=== PATIENT | male | born 1990 | race Caucasian/White ===

== ENCOUNTER 2022-04-05 13:41 | Inpatient (IN) | payer MEDICAID ==
[~2022-04-05] VITALS: Ht 167.6 cm; Wt 71.0 kg
[~2022-04-05 13:41] MED LIST: NOCURR
[2022-04-05 15:36] LABS: BASOPHILS % (AUTO) 0.5 % (0.0-2.0); EOSINOPHILS % (AUTO) 2.3 % (1.0-6.0); HEMATOCRIT 34.3 % (41-53); HEMOGLOBIN 11.4 g/dL (13.5-17.5); LYMPHOCYTES # (AUTO) 3.7 K/uL (1.0-4.8); LYMPHOCYTES % (AUTO) 30.3 % (22.0-44.0); MEAN CORPUSCULAR HEMOGLOBIN 30.4 pg (26.0-34.0); MEAN CORPUSCULAR HGB CONC 33.2 G/dL (31.0-37.0); MEAN CORPUSCULAR VOLUME 92 fL (80-100); MONOCYTES # (AUTO) 1.1 K/uL (0.1-1.0); MONOCYTES % (AUTO) 9.5 % (2.0-9.0); NEUTROPHILS % (AUTO) 57.4 % (40.0-70.0); PLATELET COUNT (AUTO) 592 K/uL (150-450); RED BLOOD CELL COUNT(AUTO) 3.74 MIL/uL (4.50-5.90); RED CELL DISTRIBUTION WIDTH 14.7 % (11.5-14.5)
[2022-04-05 15:40] LABS: ANION GAP 8 mmol/L (8-16); CARBON DIOXIDE 27 mmol/L (22-29); CHLORIDE 100 mmol/L (98-107); GLUCOSE,RANDOM 94 mg/dL (70-110); POTASSIUM 4.8 mmol/L (3.5-5.1); SODIUM SERUM 135 mmol/L (136-145); UREA NITROGEN, BLOOD 14 mg/dL (7-18)
[2022-04-05 15:41] LABS: CALCIUM, TOTAL 9.4 mg/dL (8.8-10.5)
[2022-04-05 15:42] LABS: GLOMERULAR FILTR. RATE CALC > 60 mL/min (>60)
[2022-04-05 15:46] LABS: ALANINE AMINOTRANSFERASE 82 U/L (12-78); ALBUMIN 2.7 g/dL (3.4-5.0); ALKALINE PHOSPHATASE 98 U/L (46-116); ASPARTATE AMINOTRANSFERASE 39 U/L (15-37); BILIRUBIN,TOTAL 0.3 mg/dL (0.1-1.0)
[2022-04-05 19:03] LABS: AMPHET/METH SCREEN,URINE NEGATIVE (NEGATIVE); BARBITURATE SCREEN, URINE NEGATIVE (NEGATIVE); BENZODIAZEPINES SCREEN,URINE NEGATIVE (NEGATIVE); CANNABINOID SCREEN,URINE NEGATIVE (NEGATIVE); COCAINE SCREEN,URINE NEGATIVE (NEGATIVE); METHADONE SCREEN, URINE NEGATIVE (NEGATIVE); OPIATE SCREEN,URINE POSITIVE (NEGATIVE)
[2022-04-05 19:04] LABS: PHENCYCLIDINE SCREEN,URINE NEGATIVE (NEGATIVE)
[2022-04-05] MEDS ORDERED: HYDR-4723 PO (19:23)
[2022-04-05] MEDS ORDERED: HYDROCODONE/ACETAMINOPHEN 5-325 MG TABLET PO ONE (20:30)
[2022-04-05] MEDS ORDERED: HYDROCODONE/ACETAMINOPHEN 5-325 MG TABLET PO PRN (20:30)
[2022-04-05 20:59] LABS: COVID AG,FIA SOURCE NASOPHARYNGEAL
[2022-04-05] MEDS ORDERED: IBUPROFEN 600 MG TABLET PO ONE (21:00)
[2022-04-05] MEDS ORDERED: ACETAMINOPHEN 325 MG TABLET PO ONE (21:00)
[2022-04-05 21:02] LABS: LIPASE 64 U/L (73-393)
[2022-04-05 21:28] LABS: INFLUENZA TYPE A NEGATIVE FOR TYPE A (NEGATIVE); INFLUENZA TYPE B NEGATIVE FOR TYPE B (NEGATIVE)
[2022-04-05 21:43] LABS: APPEARANCE,URINE CLEAR (CLEAR); BILIRUBIN,URINE NEGATIVE (NEGATIVE); GLUCOSE, URINE (UA) NEGATIVE (NEGATIVE); KETONES,URINE NEGATIVE (NEGATIVE); LEUKOCYTE ESTERASE ,URINE NEGATIVE (NEGATIVE); NITRATE,URINE NEGATIVE (NEGATIVE); OCCULT BLOOD,URINE NEGATIVE (NEGATIVE); PROTEIN,URINE NEGATIVE (NEGATIVE); SPECIFIC GRAVITIY, URINE 1.019 (1.003-1.030); UROBILINOGEN,URINE <=1.0 mg/dL (<=1.0)
[2022-04-05 21:46] LABS: BACTERIA,URINE None Seen /HPF (None Seen); RBC,URINE 0-2 /HPF (0-2); SQUAMOUS EPITHELIAL CELL,UR Rare /LPF (None Seen); WBC,URINE 0-2 /HPF (0-5)
[2022-04-06] VITALS (9 sets, daily range): BP systolic 101–130; BP diastolic 61–88
[2022-04-06] MEDS ORDERED: MAGNESIUM HYDROXIDE SUSPENSION 30 ML UDCUP PO PRN (06:30)
[2022-04-06] MEDS ORDERED: ACETAMINOPHEN 325 MG TABLET PO PRN (06:30)
[2022-04-06] MEDS ORDERED: CloNIDine HCL 0.1 MG TABLET PO PRN (06:30)
[2022-04-06] MEDS ORDERED: ONDANSETRON HCL 4 MG TABLET PO PRN (06:30)
[2022-04-06] MEDS ORDERED: GuaiFENesin/D-METHORPHAN [SUGAR-FREE] 200-20MG/10 ML SYRUP UDCUP PO PRN (06:30)
[2022-04-06] MEDS ORDERED: MAG HYDROX/AL HYDROX/SIMETH ES 30 ML SUSPENSION UDCUP PO PRN (06:30)
[2022-04-06] MEDS ORDERED: LOPERAMIDE HCL 2 MG CAPSULE PO PRN (06:30)
[2022-04-06] MEDS ORDERED: DOCUSATE SODIUM 100 MG CAPSULE PO PRN (06:30)
[2022-04-06] MEDS ORDERED: PETROLATUM,WHITE 28 GM JELLY TP PRN (06:30)
[2022-04-06] MEDS ORDERED: ALBUTEROL SULFATE HFA 90 MCG/PUFF 8 GM INHALER IH PRN (06:30)
[2022-04-06] MEDS: RisperiDONE 1 MG TABLET PO SCH ×2 (11:09→17:06)
[2022-04-06] MEDS: HYDROCODONE/ACETAMINOPHEN 5-325 MG TABLET PO PRN ×2 (11:15→19:44)
[2022-04-06] MEDS: NICOTINE 14 MG/24 HOUR PATCH TD PRN (11:16)
[2022-04-06] MEDS: IBUPROFEN 400 MG TABLET PO PRN (17:07)
[2022-04-07] VITALS (7 sets, daily range): BP systolic 102–124; BP diastolic 60–79
[2022-04-07] MEDS: IBUPROFEN 400 MG TABLET PO PRN ×2 (03:09→21:27)
[2022-04-07] MEDS: HYDROCODONE/ACETAMINOPHEN 5-325 MG TABLET PO PRN ×3 (05:02→19:05)
[2022-04-07] MEDS: RisperiDONE 1 MG TABLET PO SCH ×2 (08:39→16:07)
[2022-04-07] MEDS: MUPIROCIN CALCIUM 2% 22 GM OINTMENT NASAL SCH (16:07)
[2022-04-08] MEDS: HYDROCODONE/ACETAMINOPHEN 5-325 MG TABLET PO PRN ×4 (02:03→20:07)
[2022-04-08] MEDS: RisperiDONE 1 MG TABLET PO SCH ×2 (08:03→16:11)
[2022-04-08 08:07] VITALS: BP 124/82
[2022-04-08] MEDS: MUPIROCIN CALCIUM 2% 22 GM OINTMENT NASAL SCH ×2 (08:14→16:10)
[2022-04-08 09:00] VITALS: BP 124/82
[2022-04-08 14:03] VITALS: BP 118/72
[2022-04-08 16:33] VITALS: BP 107/57
[2022-04-08] MEDS: IBUPROFEN 400 MG TABLET PO PRN (17:49)
[2022-04-08 20:05] VITALS: BP 111/65
[2022-04-08] MEDS: ZOLPIDEM TARTRATE 10 MG TABLET PO PRN (20:37)
[2022-04-09] VITALS (7 sets, daily range): BP systolic 108–139; BP diastolic 38–81
[2022-04-09] MEDS: HYDROCODONE/ACETAMINOPHEN 5-325 MG TABLET PO PRN ×3 (02:08→15:02)
[2022-04-09] MEDS: IBUPROFEN 400 MG TABLET PO PRN ×2 (04:25→13:22)
[2022-04-09] MEDS: NICOTINE 14 MG/24 HOUR PATCH TD PRN (08:20)
[2022-04-09 08:45] LABS: BASOPHILS % (AUTO) 0.8 % (0.0-2.0); EOSINOPHILS % (AUTO) 1.7 % (1.0-6.0); HEMATOCRIT 35.3 % (41-53); HEMOGLOBIN 11.4 g/dL (13.5-17.5); LYMPHOCYTES # (AUTO) 4.4 K/uL (1.0-4.8); LYMPHOCYTES % (AUTO) 38.5 % (22.0-44.0); MEAN CORPUSCULAR HEMOGLOBIN 29.8 pg (26.0-34.0); MEAN CORPUSCULAR HGB CONC 32.4 G/dL (31.0-37.0); MEAN CORPUSCULAR VOLUME 92 fL (80-100); MONOCYTES # (AUTO) 0.9 K/uL (0.1-1.0); NEUTROPHILS # (AUTO) 5.8 K/uL (1.8-7.7); PLATELET COUNT (AUTO) 734 K/uL (150-450); RED BLOOD CELL COUNT(AUTO) 3.84 MIL/uL (4.50-5.90); RED CELL DISTRIBUTION WIDTH 14.7 % (11.5-14.5)
[2022-04-09] MEDS: RisperiDONE 1 MG TABLET PO SCH ×2 (09:00→16:08)
[2022-04-09] MEDS: MUPIROCIN CALCIUM 2% 22 GM OINTMENT NASAL SCH ×2 (09:11→16:11)
[2022-04-09] MEDS: LORazepam 2 MG TABLET PO PRN (18:03)
[2022-04-10] MEDS: ZOLPIDEM TARTRATE 10 MG TABLET PO PRN ×2 (00:13→22:19)
[2022-04-10] MEDS: HYDROCODONE/ACETAMINOPHEN 5-325 MG TABLET PO PRN ×4 (00:13→22:30)
[2022-04-10] MEDS: IBUPROFEN 400 MG TABLET PO PRN ×2 (06:03→13:10)
[2022-04-10 08:18] VITALS: BP 109/83
[2022-04-10] MEDS: MUPIROCIN CALCIUM 2% 22 GM OINTMENT NASAL SCH ×2 (08:46→15:55)
[2022-04-10] MEDS: RisperiDONE 1 MG TABLET PO SCH ×3 (08:47→16:03)
[2022-04-10 16:08] VITALS: BP 116/62
[2022-04-10 19:45] VITALS: BP 120/73
[2022-04-10 22:30] VITALS: BP 129/82
[2022-04-11 01:38] VITALS: BP 120/78
[2022-04-11] MEDS: IBUPROFEN 400 MG TABLET PO PRN ×3 (01:38→20:41)
[2022-04-11] MEDS: LORazepam 2 MG TABLET PO PRN (01:39)
[2022-04-11 06:23] VITALS: BP 127/83
[2022-04-11] MEDS: HYDROCODONE/ACETAMINOPHEN 5-325 MG TABLET PO PRN ×3 (06:23→18:31)
[2022-04-11 06:49] LABS: COVID AG,FIA SOURCE NASAL SWAB
[2022-04-11] MEDS: RisperiDONE 1 MG TABLET PO SCH ×2 (08:31→16:55)
[2022-04-11] MEDS: MUPIROCIN CALCIUM 2% 22 GM OINTMENT NASAL SCH ×2 (08:42→16:55)
[2022-04-11 08:57] VITALS: BP 127/73
[2022-04-11 16:11] VITALS: BP 135/78
[2022-04-11 20:41] VITALS: BP 128/84
[2022-04-11] MEDS: ZOLPIDEM TARTRATE 10 MG TABLET PO PRN (20:41)
[2022-04-12] MEDS: LORazepam 2 MG TABLET PO PRN ×3 (00:27→17:51)
[2022-04-12 03:40] VITALS: BP 111/69
[2022-04-12] MEDS: HYDROCODONE/ACETAMINOPHEN 5-325 MG TABLET PO PRN ×3 (03:43→23:12)
[2022-04-12] MEDS: RisperiDONE 1 MG TABLET PO SCH ×2 (07:57→17:51)
[2022-04-12] MEDS: MUPIROCIN CALCIUM 2% 22 GM OINTMENT NASAL SCH (07:58)
[2022-04-12] MEDS: NICOTINE 14 MG/24 HOUR PATCH TD PRN (07:58)
[2022-04-12 08:16] VITALS: BP 134/76
[2022-04-12] MEDS: HALOPERIDOL 5 MG TABLET PO PRN ×2 (12:45→17:51)
[2022-04-12 16:20] VITALS: BP 114/73
[2022-04-12 17:30] LABS: BASOPHILS % (AUTO) 0.7 % (0.0-2.0); EOSINOPHILS % (AUTO) 1.4 % (1.0-6.0); HEMATOCRIT 35.3 % (41-53); HEMOGLOBIN 11.8 g/dL (13.5-17.5); LYMPHOCYTES % (AUTO) 38.3 % (22.0-44.0); MEAN CORPUSCULAR HEMOGLOBIN 30.6 pg (26.0-34.0); MEAN CORPUSCULAR HGB CONC 33.4 G/dL (31.0-37.0); MEAN CORPUSCULAR VOLUME 92 fL (80-100); NEUTROPHILS # (AUTO) 6.8 K/uL (1.8-7.7); NEUTROPHILS % (AUTO) 51.6 % (40.0-70.0); RED BLOOD CELL COUNT(AUTO) 3.85 MIL/uL (4.50-5.90); RED CELL DISTRIBUTION WIDTH 14.9 % (11.5-14.5)
[2022-04-12 17:38] LABS: PLATELET COUNT (AUTO) 803 K/uL (150-450)
[2022-04-12 17:49] LABS: ANION GAP 4 mmol/L (8-16); CALCIUM, TOTAL 9.4 mg/dL (8.8-10.5); CARBON DIOXIDE 33 mmol/L (22-29); CHLORIDE 103 mmol/L (98-107); CREATININE 0.68 mg/dL (0.60-1.30); GLUCOSE,RANDOM 95 mg/dL (70-110); POTASSIUM 4.5 mmol/L (3.5-5.1); SODIUM SERUM 140 mmol/L (136-145); UREA NITROGEN, BLOOD 13 mg/dL (7-18)
[2022-04-12 17:51] LABS: GLOMERULAR FILTR. RATE CALC > 60 mL/min (>60)
[2022-04-12] MEDS: ASPIRIN 81 MG CHEWABLE TABLET PO SCH (17:55)
[2022-04-12 20:25] VITALS: BP 118/70
[2022-04-12 23:10] VITALS: BP 116/75
[2022-04-12] MEDS: ZOLPIDEM TARTRATE 10 MG TABLET PO PRN (23:12)
[2022-04-13 05:12] VITALS: BP 125/74
[2022-04-13] MEDS: HYDROCODONE/ACETAMINOPHEN 5-325 MG TABLET PO PRN ×3 (05:15→19:30)
[2022-04-13] MEDS: NICOTINE 14 MG/24 HOUR PATCH TD PRN (07:31)
[2022-04-13] MEDS: HALOPERIDOL 5 MG TABLET PO PRN ×2 (07:31→14:35)
[2022-04-13] MEDS: RisperiDONE 1 MG TABLET PO SCH ×2 (07:31→17:27)
[2022-04-13] MEDS: ASPIRIN 81 MG CHEWABLE TABLET PO SCH (07:31)
[2022-04-13] MEDS: LORazepam 2 MG TABLET PO PRN ×2 (07:31→14:35)
[2022-04-13 16:09] VITALS: BP 108/85
[2022-04-13 19:30] VITALS: BP 114/81
[2022-04-13] MEDS: ZOLPIDEM TARTRATE 10 MG TABLET PO PRN (23:37)
[2022-04-14 02:51] VITALS: BP 122/63
[2022-04-14] MEDS: HYDROCODONE/ACETAMINOPHEN 5-325 MG TABLET PO PRN ×2 (02:51→08:25)
[2022-04-14 07:42] LABS: CHOL/HDL RATIO 3.2 (4.2-7.3)
[2022-04-14] MEDS: ASPIRIN 81 MG CHEWABLE TABLET PO SCH (08:00)
[2022-04-14] MEDS: RisperiDONE 1 MG TABLET PO SCH (08:00)
[2022-04-14 08:26] VITALS: BP 105/62
[2022-04-14] MEDS: IBUPROFEN 400 MG TABLET PO PRN (11:06)
== END 2022-04-14 12:15 | disposition home or self-care (01) | DRG 750 ==
LOC: EMS 13:45 → 3EC 04-06 00:41
PROVIDERS: ADMIT Psychiatry & Neurology Child & Adolescent Psychiatry; ATTEND Psychiatry & Neurology Child & Adolescent Psychiatry
DX: F25.0 Schizoaffective disorder, bipolar type (principal); E87.1 Hypo-osmolality and hyponatremia; R45.851 Suicidal ideations; F32.9 Major depressive disorder, single episode, unspecified; G40.909 Epilepsy, unspecified, not intractable, without status epilepticus; D64.9 Anemia, unspecified; D72.829 Elevated white blood cell count, unspecified; F41.9 Anxiety disorder, unspecified; D75.839 Thrombocytosis, unspecified; Z20.822 Contact with and (suspected) exposure to COVID-19; Z59.00 Homelessness unspecified; Z87.891 Personal history of nicotine dependence; Z79.899 Other long term (current) drug therapy
CPT/HCPCS: 80048; 80053; 80061; 81001; 83690; 85025; 87081; 87804; 99285; G0480